=== PATIENT | female | born 1940 | race Caucasian/White ===

== ENCOUNTER 2020-10-15 15:28 | Observation (INO) | payer OTHER ==
[2020-10-15 18:46] LABS: BASO % 0.7 % (0-2.0); EOS % 1.5 % (0-4.5); HEMATOCRIT 38.1 % (32.4-45.2); HEMOGLOBIN 12.6 GM/dL (10.7-15.3); LYMPH % 27.8 % (8-40); MCH 29.4 pg (25.7-33.7); MCHC 33.2 g/dl (32.0-36.0); MEAN CELL VOLUME 88.5 fl (80-96); MEAN PLT VOLUME 9.1 fl (7.5-11.1); MONO % 9.1 % (3.8-10.2); NEUT % 60.9 % (42.8-82.8); PLATELET COUNT 237 10^3/uL (134-434); RBC 4.31 M/mm3 (3.60-5.2); RDW 14.2 % (11.6-15.6); WHITE BLOOD COUNT 10.3 K/mm3 (4.0-10.0)
[2020-10-15 18:52] LABS: INR 1.02 (0.83-1.09); PROTHROMBIN TIME (PATIENT) 12.5 SEC (9.7-13.0)
[2020-10-15 18:55] LABS: ACTIVATED PTT 29.6 SECONDS (25.2-36.5)
[2020-10-15] MEDS ORDERED: ACETAMINOPHEN 1000 MG/100 ML VIAL (NON FORMULARY) IVPB ONE (19:02)
[2020-10-15 19:14] LABS: CHLORIDE 104 mmol/L (98-107); SODIUM 138 mmol/L (136-145)
[2020-10-15 19:16] LABS: ALBUMIN 3.6 g/dl (3.4-5.0); ANION GAP 7 MMOL/L (8-16); BLOOD UREA NITROGEN 28.7 mg/dL (7-18); CALCIUM 9.2 mg/dL (8.5-10.1); CO2 27 mmol/L (21-32)
[2020-10-15 19:17] LABS: GLUCOSE,RANDOM 86 mg/dL (74-106); MAGNESIUM 2.3 mg/dL (1.8-2.4)
[2020-10-15 19:19] LABS: SGOT/AST 36 U/L (15-37); SGPT/ALT 23 U/L (13-61)
[2020-10-15 19:20] LABS: CREATININE 1.5 mg/dL (0.55-1.3)
[2020-10-15 19:21] LABS: BILIRUBIN,TOTAL 0.4 mg/dL (0.2-1)
[2020-10-15 19:22] LABS: ALK PHOS 92 U/L (45-117)
[2020-10-15] MEDS ORDERED: ACETAMINOPHEN INJECTION 100 ML IVPB ONE (19:40)
[2020-10-15] MEDS ORDERED: ACETAMINOPHEN 325 MG TABLET (FP) PO PRN (20:26)
[2020-10-15] MEDS ORDERED: ALBUTEROL SO4 2.5/IPRATROPIUM 0.5 INH SOL 3 ML VIAL.NEB. NEB PRN (20:30)
[2020-10-15] MEDS ORDERED: ATORVASTATIN CA 20 MG TABLET (FP) ONE (21:42)
[2020-10-15] MEDS ORDERED: PANTOPRAZOLE 40 MG TABLET ONE (21:42)
[2020-10-15] MEDS ORDERED: QUEtiapine FUMARATE 25 MG TABLET ONE (21:43)
[2020-10-16] MEDS: MELATONIN 1 MG TABLET PO SCH ×2 (00:07→22:47)
[2020-10-16] MEDS: DIVALPROEX NA *ER* EXTEND REL 500 MG TABLET.SA (FP) PO SCH ×2 (00:08→22:47)
[2020-10-16] MEDS: MINERAL OIL/PET HY-PHL TOPICAL OINTMENT 454 GM JAR TP SCH ×3 (00:08→22:54)
[2020-10-16] MEDS: PANTOPRAZOLE 40 MG TABLET PO SCH ×2 (00:09→10:05)
[2020-10-16] MEDS: ATORVASTATIN CA 20 MG TABLET (FP) PO SCH ×2 (00:09→22:47)
[2020-10-16] MEDS: LITHIUM CARBONATE 150 MG CAPSULE PO SCH ×2 (00:09→22:51)
[2020-10-16] MEDS: QUEtiapine FUMARATE 25 MG TABLET PO SCH ×2 (00:09→22:47)
[2020-10-16] MEDS: D5-1/2NS+10 MEQ KCL - 10 MEQ/1,000 ML INFUS.BAG IV SCH ×3 (00:38→23:46)
[2020-10-16 00:58] VITALS: BMI 31.0
[2020-10-16] MEDS: LEVOTHYROXINE NA 50 MCG TABLET (FP) PO SCH (06:19)
[2020-10-16] MEDS: ESCITALOPRAM OXALATE 20 MG TABLET PO SCH (10:05)
[2020-10-16] MEDS: POLYETHYLENE GLYCOL (HEALTHYLAX) 3350 17 GM PACKET PO SCH (10:05)
[2020-10-16] MEDS: MEMANTINE HCL 5 MG TABLET (UD) PO SCH (10:05)
[2020-10-16] MEDS: ASPIRIN COATED 81 MG TABLET.EC PO SCH (10:05)
[2020-10-16] MEDS: metoPROLOL SUCCINATE 25 MG TAB.SR.24H (FP) PO SCH (10:06)
[2020-10-16] MEDS: DONEPEZIL HCL 5 MG TABLET (FP) PO SCH (10:11)
[2020-10-16 11:47] LABS: BASO % 0.7 % (0-2.0); EOS % 3.7 % (0-4.5); HEMOGLOBIN 11.9 GM/dL (10.7-15.3); LYMPH % 34.2 % (8-40); MCH 28.9 pg (25.7-33.7); MCHC 32.3 g/dl (32.0-36.0); MEAN CELL VOLUME 89.4 fl (80-96); MEAN PLT VOLUME 9.1 fl (7.5-11.1); NEUT % 50.4 % (42.8-82.8); PLATELET COUNT 218 10^3/uL (134-434); RBC 4.13 M/mm3 (3.60-5.2); RDW 14.2 % (11.6-15.6); WHITE BLOOD COUNT 7.2 K/mm3 (4.0-10.0)
[2020-10-16 12:13] LABS: CALCIUM 8.9 mg/dL (8.5-10.1)
[2020-10-16 12:14] LABS: BLOOD UREA NITROGEN 21.6 mg/dL (7-18)
[2020-10-16 12:17] LABS: CREATININE 1.4 mg/dL (0.55-1.3)
[2020-10-16] MEDS ORDERED: PT OWN MED DRAWER 7, Y5N ONE (22:37)
[2020-10-17] MEDS: LEVOTHYROXINE NA 50 MCG TABLET (FP) PO SCH (06:23)
[2020-10-17 07:41] LABS: BASO % 0.8 % (0-2.0); EOS % 4.2 % (0-4.5); HEMATOCRIT 35.2 % (32.4-45.2); HEMOGLOBIN 11.9 GM/dL (10.7-15.3); LYMPH % 42.7 % (8-40); MCH 29.7 pg (25.7-33.7); MCHC 33.7 g/dl (32.0-36.0); MEAN CELL VOLUME 88.1 fl (80-96); MEAN PLT VOLUME 8.4 fl (7.5-11.1); MONO % 7.8 % (3.8-10.2); NEUT % 44.5 % (42.8-82.8); PLATELET COUNT 215 10^3/uL (134-434); RDW 14.1 % (11.6-15.6); WHITE BLOOD COUNT 7.4 K/mm3 (4.0-10.0)
[2020-10-17] MEDS: ESCITALOPRAM OXALATE 20 MG TABLET PO SCH (09:42)
[2020-10-17] MEDS: MINERAL OIL/PET HY-PHL TOPICAL OINTMENT 454 GM JAR TP SCH ×2 (09:42→21:11)
[2020-10-17] MEDS: PANTOPRAZOLE 40 MG TABLET PO SCH (09:42)
[2020-10-17] MEDS: POLYETHYLENE GLYCOL (HEALTHYLAX) 3350 17 GM PACKET PO SCH (09:42)
[2020-10-17] MEDS: ASPIRIN COATED 81 MG TABLET.EC PO SCH (09:42)
[2020-10-17] MEDS: metoPROLOL SUCCINATE 25 MG TAB.SR.24H (FP) PO SCH (09:42)
[2020-10-17] MEDS: MEMANTINE HCL 5 MG TABLET (UD) PO SCH (09:42)
[2020-10-17] MEDS: DONEPEZIL HCL 5 MG TABLET (FP) PO SCH (09:43)
[2020-10-17 10:41] LABS: BLOOD UREA NITROGEN 19.4 mg/dL (7-18); CALCIUM 8.5 mg/dL (8.5-10.1); CREATININE 1.5 mg/dL (0.55-1.3)
[2020-10-17] MEDS: CYANOCOBALAMIN 1,000 MCG TABLET (FP) PO SCH (12:51)
[2020-10-17 20:43] LABS: URINE APPEARANCE CLEAR; URINE BILIRUBIN NEGATIVE (NEGATIVE); URINE COLOR YELLOW; URINE GLUCOSE (UA) NEGATIVE (NEGATIVE)
[2020-10-17 20:44] LABS: PH,URINE 6.5 (5.0-8.0); URINE KETONE NEGATIVE (NEGATIVE); URINE NITRITE NEGATIVE (NEGATIVE); URINE PROTEIN NEGATIVE (NEGATIVE)
[2020-10-17 20:45] LABS: URINE LEUK ESTERASE MODERATE (NEGATIVE)
[2020-10-17] MEDS ORDERED: PT OWN MED DRAWER 7, Y5N ONE (20:57)
[2020-10-17] MEDS: QUEtiapine FUMARATE 25 MG TABLET PO SCH (21:12)
[2020-10-17] MEDS: DIVALPROEX NA *ER* EXTEND REL 500 MG TABLET.SA (FP) PO SCH (21:13)
[2020-10-17] MEDS: LITHIUM CARBONATE 150 MG CAPSULE PO SCH (21:13)
[2020-10-17] MEDS: ATORVASTATIN CA 20 MG TABLET (FP) PO SCH (21:14)
[2020-10-17] MEDS: MELATONIN 1 MG TABLET PO SCH (21:23)
[2020-10-17 21:31] LABS: URINE RBC 0-4 /uL (0-23.9)
[2020-10-17 21:32] LABS: URINE BACTERIA MODERATE /uL (0-1359)
[2020-10-18] MEDS: D5-1/2NS+10 MEQ KCL - 10 MEQ/1,000 ML INFUS.BAG IV SCH (05:40)
[2020-10-18] MEDS: LEVOTHYROXINE NA 50 MCG TABLET (FP) PO SCH (06:02)
[2020-10-18 08:11] LABS: BASO % 0.7 % (0-2.0); EOS % 3.6 % (0-4.5); HEMATOCRIT 38.8 % (32.4-45.2); HEMOGLOBIN 12.8 GM/dL (10.7-15.3); LYMPH % 35.4 % (8-40); MCH 29.2 pg (25.7-33.7); MCHC 32.9 g/dl (32.0-36.0); MEAN CELL VOLUME 88.8 fl (80-96); MEAN PLT VOLUME 8.7 fl (7.5-11.1); MONO % 8.4 % (3.8-10.2); NEUT % 51.9 % (42.8-82.8); PLATELET COUNT 241 10^3/uL (134-434); RBC 4.37 M/mm3 (3.60-5.2); RDW 13.8 % (11.6-15.6); WHITE BLOOD COUNT 9.1 K/mm3 (4.0-10.0)
[2020-10-18 08:26] LABS: CALCIUM 8.8 mg/dL (8.5-10.1)
[2020-10-18 08:27] LABS: BLOOD UREA NITROGEN 21.8 mg/dL (7-18)
[2020-10-18 08:30] LABS: CREATININE 1.6 mg/dL (0.55-1.3)
[2020-10-18] MEDS: ASPIRIN COATED 81 MG TABLET.EC PO SCH (10:12)
[2020-10-18] MEDS: metoPROLOL SUCCINATE 25 MG TAB.SR.24H (FP) PO SCH (10:12)
[2020-10-18] MEDS: CYANOCOBALAMIN 1,000 MCG TABLET (FP) PO SCH (10:13)
[2020-10-18] MEDS: PANTOPRAZOLE 40 MG TABLET PO SCH (10:13)
[2020-10-18] MEDS: DONEPEZIL HCL 5 MG TABLET (FP) PO SCH (10:13)
[2020-10-18] MEDS: MEMANTINE HCL 5 MG TABLET (UD) PO SCH (10:13)
[2020-10-18] MEDS: POLYETHYLENE GLYCOL (HEALTHYLAX) 3350 17 GM PACKET PO SCH (10:13)
[2020-10-18] MEDS: ESCITALOPRAM OXALATE 20 MG TABLET PO SCH (10:13)
[2020-10-18] MEDS: MINERAL OIL/PET HY-PHL TOPICAL OINTMENT 454 GM JAR TP SCH (10:14)
[2020-10-18 10:16] VITALS: BP 129/83; PULSE 93; TEMP 98.2
== END 2020-10-18 15:32 | disposition home or self-care (01) ==
LOC: JER 15:28 → JERBED 19:26 → J4W 23:37
PROVIDERS: ADMIT Internal Medicine; ATTEND Internal Medicine
PROC: 3E033NZ Introduction of Analgesics, Hypnotics, Sedatives into Peripheral Vein, Percutaneous Approach (ICD-10-PCS; principal; 2020-10-15)
PROC: 3E033GC Introduction of Other Therapeutic Substance into Peripheral Vein, Percutaneous Approach (ICD-10-PCS; 2020-10-15)
DX: F07.81 Postconcussional syndrome (principal); R55 Syncope and collapse; S62.124A Nondisplaced fracture of lunate [semilunar], right wrist, initial encounter for closed fracture; I10 Essential (primary) hypertension; I48.91 Unspecified atrial fibrillation; F31.9 Bipolar disorder, unspecified; Z95.0 Presence of cardiac pacemaker; G31.84 Mild cognitive impairment of uncertain or unknown etiology; R26.89 Other abnormalities of gait and mobility; E03.9 Hypothyroidism, unspecified; J45.909 Unspecified asthma, uncomplicated; W18.39XA Other fall on same level, initial encounter; Y93.89 Activity, other specified; Y92.099 Unspecified place in other non-institutional residence as the place of occurrence of the external cause; E66.9 Obesity, unspecified; Z68.31 Body mass index [BMI] 31.0-31.9, adult
CPT/HCPCS: 36415; 70450-TC; 71045-TC-FY; 72125-TC; 73110-TC-RT-FY; 73130-TC-RT-FY; 80048; 80053; 81003; 82550; 82553; 82607; 83735; 84443; 84484; 85025; 85610; 85730; 86780; 87086; 87186; 93005; 93010; 93306-TC; 93880-TC; 96374; 96375; 97116-GP; 97162-GP; 99285-25; C9803; G0378; J0131; U0003; U0005

== ENCOUNTER 2020-11-18 18:20 | Emergency (ER) | payer OTHER ==
[2020-11-18 19:08] VITALS: TEMP 98.4; BMI 30.2
[2020-11-18] MEDS ORDERED: ACETAMINOPHEN 325 MG TABLET (FP) PO ONE (19:50)
[2020-11-18] MEDS ORDERED: ACETAMINOPHEN 325 MG TABLET (FP) ONE (19:54)
[2020-11-18 23:03] VITALS: BP 135/72; PULSE 74
== END 2020-11-19 02:30 | disposition home or self-care (01) ==
LOC: JER 18:20
DX: S09.90XA Unspecified injury of head, initial encounter (principal); W05.0XXA Fall from non-moving wheelchair, initial encounter
CPT/HCPCS: 70450-TC; 72125-TC; 99284-25

== ENCOUNTER 2021-10-13 09:41 | Inpatient (IN) | payer OTHER, BC ==
[2021-10-13 12:16] LABS: BASO % 0.3 % (0-2.0); EOS % 0.2 % (0-4.5); HEMATOCRIT 35.2 % (32.4-45.2); HEMOGLOBIN 11.4 GM/dL (10.7-15.3); MCHC 32.5 g/dl (32.0-36.0); MEAN CELL VOLUME 86.2 fl (80-96); MEAN PLT VOLUME 9.1 fl (7.5-11.1); MONO % 6.3 % (3.8-10.2); NEUT % 79.2 % (42.8-82.8); PLATELET COUNT 291 10^3/uL (134-434); RBC 4.08 M/mm3 (3.60-5.2); RDW 14.9 % (11.6-15.6); WHITE BLOOD COUNT 18.6 K/mm3 (4.0-10.0)
[2021-10-13 12:41] LABS: ALBUMIN 3.1 g/dl (3.4-5.0); CALCIUM 9.5 mg/dL (8.5-10.1)
[2021-10-13 12:42] LABS: BLOOD UREA NITROGEN 23.2 mg/dL (7-18)
[2021-10-13 12:44] LABS: CREATININE 1.3 mg/dL (0.55-1.3)
[2021-10-13 12:45] LABS: BILIRUBIN,TOTAL 0.4 mg/dL (0.2-1)
[2021-10-13 13:00] LABS: ERYTHROCYTE SEDIMENTATION RATE 65 mm/hr (0-30)
[2021-10-13] MEDS: PANTOPRAZOLE 40 MG TABLET PO SCH (18:40)
[2021-10-13] MEDS ORDERED: ATORVASTATIN CA 20 MG TABLET (FP) ONE (21:45)
[2021-10-13] MEDS ORDERED: DIVALPROEX SODIUM 500 MG TABLET E.C. ONE (21:45)
[2021-10-13] MEDS: DIVALPROEX NA *ER* EXTEND REL 500 MG TABLET.SA (FP) PO SCH (21:48)
[2021-10-13] MEDS: ATORVASTATIN CA 20 MG TABLET (FP) PO SCH (21:48)
[2021-10-13] MEDS: LITHIUM CARBONATE 150 MG CAPSULE PO SCH (22:44)
[2021-10-14 03:32] VITALS: BMI 29.8
[2021-10-14] MEDS: LEVOTHYROXINE NA 50 MCG TABLET (FP) PO SCH (06:46)
[2021-10-14] MEDS ORDERED: hydrALAZINE HCL 10 MG TABLET PO ONE (08:23)
[2021-10-14] MEDS ORDERED: ESCITALOPRAM OXALATE 10 MG TABLET ONE (10:00)
[2021-10-14] MEDS ORDERED: metoPROLOL SUCCINATE 25 MG TAB.SR.24H (FP) PO SCH (10:00)
[2021-10-14] MEDS: ASPIRIN COATED 81 MG TABLET.EC PO SCH (10:04)
[2021-10-14] MEDS: MEMANTINE HCL 5 MG TABLET (UD) PO SCH (10:05)
[2021-10-14] MEDS: PANTOPRAZOLE 40 MG TABLET PO SCH (10:05)
[2021-10-14] MEDS: DONEPEZIL HCL 5 MG TABLET (FP) PO SCH (10:05)
[2021-10-14] MEDS: ESCITALOPRAM OXALATE 20 MG TABLET PO SCH (10:05)
[2021-10-14] MEDS: POLYETHYLENE GLYCOL (HEALTHYLAX) 3350 17 GM PACKET PO SCH (10:06)
[2021-10-14 11:05] LABS: BASO % 0.5 % (0-2.0); EOS % 0.2 % (0-4.5); HEMATOCRIT 37.2 % (32.4-45.2); LYMPH % 12.2 % (8-40); MCH 27.9 pg (25.7-33.7); MCHC 32.2 g/dl (32.0-36.0); MEAN CELL VOLUME 86.5 fl (80-96); MEAN PLT VOLUME 8.6 fl (7.5-11.1); MONO % 4.4 % (3.8-10.2); NEUT % 82.7 % (42.8-82.8); PLATELET COUNT 341 10^3/uL (134-434); RBC 4.31 M/mm3 (3.60-5.2); RDW 14.4 % (11.6-15.6); WHITE BLOOD COUNT 17.3 K/mm3 (4.0-10.0)
[2021-10-14] MEDS ORDERED: ONDANSETRON 4 MG/2 ML VIAL IVPUSH PRN (11:10)
[2021-10-14] MEDS: HEPARIN NA (PORCINE) 5,000 UNITS/ML 1ML VIAL SQ SCH ×2 (13:24→21:36)
[2021-10-14] MEDS: PIPERACILLIN/TAZOB 3.375 GM 3.375 GM in DEXTROSE 5%-WATER - 50 ML IVPB SCH ×2 (14:00→17:07)
[2021-10-14] MEDS ORDERED: hydrALAZINE HCL 10 MG TABLET PO SCH ×2 (14:00)
[2021-10-14] MEDS: VANCOMYCIN 1 GRAM (PRE-DOCKED) 1,000 MG/250 ML BAG IVPB SCH (15:00)
[2021-10-14] MEDS ORDERED: PIPERACILLIN/TAZOBACTAM 3.375 GM VIAL IVPB ONE ×2 (15:36→16:39)
[2021-10-14] MEDS ORDERED: DEXTROSE 5%-WATER - 50 ML IVPB ONE (15:37)
[2021-10-14] MEDS: ACETAMINOPHEN 325 MG TABLET (FP) PO PRN (17:47)
[2021-10-14] MEDS: ATORVASTATIN CA 20 MG TABLET (FP) PO SCH (21:35)
[2021-10-14] MEDS: LITHIUM CARBONATE 150 MG CAPSULE PO SCH (21:35)
[2021-10-14] MEDS: DIVALPROEX NA *ER* EXTEND REL 500 MG TABLET.SA (FP) PO SCH (21:36)
[2021-10-15] MEDS ORDERED: DEXTROSE 5%-WATER - 50 ML IVPB ONE ×3 (01:19→17:16)
[2021-10-15] MEDS ORDERED: PIPERACILLIN/TAZOBACTAM 3.375 GM VIAL IVPB ONE ×3 (01:19→17:16)
[2021-10-15] MEDS: PIPERACILLIN/TAZOB 3.375 GM 3.375 GM in DEXTROSE 5%-WATER - 50 ML IVPB SCH ×3 (01:24→17:29)
[2021-10-15] MEDS: VANCOMYCIN 1 GRAM (PRE-DOCKED) 1,000 MG/250 ML BAG IVPB SCH ×2 (01:47→14:21)
[2021-10-15] MEDS: LEVOTHYROXINE NA 50 MCG TABLET (FP) PO SCH (06:05)
[2021-10-15] MEDS: HEPARIN NA (PORCINE) 5,000 UNITS/ML 1ML VIAL SQ SCH ×3 (06:05→21:15)
[2021-10-15] MEDS ORDERED: ESCITALOPRAM OXALATE 10 MG TABLET ONE (09:46)
[2021-10-15] MEDS: ASPIRIN COATED 81 MG TABLET.EC PO SCH (10:00)
[2021-10-15] MEDS: DONEPEZIL HCL 5 MG TABLET (FP) PO SCH (10:00)
[2021-10-15] MEDS: ESCITALOPRAM OXALATE 20 MG TABLET PO SCH (10:00)
[2021-10-15] MEDS: PANTOPRAZOLE 40 MG TABLET PO SCH (10:00)
[2021-10-15] MEDS: MEMANTINE HCL 5 MG TABLET (UD) PO SCH (10:00)
[2021-10-15] MEDS: POLYETHYLENE GLYCOL (HEALTHYLAX) 3350 17 GM PACKET PO SCH (10:00)
[2021-10-15 10:50] LABS: BASO % 0.6 % (0-2.0); HEMATOCRIT 36.3 % (32.4-45.2); HEMOGLOBIN 12.1 GM/dL (10.7-15.3); LYMPH % 18.8 % (8-40); MCH 28.4 pg (25.7-33.7); MCHC 33.3 g/dl (32.0-36.0); MEAN CELL VOLUME 85.2 fl (80-96); MEAN PLT VOLUME 8.4 fl (7.5-11.1); MONO % 5.6 % (3.8-10.2); PLATELET COUNT 361 10^3/uL (134-434); RBC 4.26 M/mm3 (3.60-5.2); RDW 14.7 % (11.6-15.6)
[2021-10-15 11:38] LABS: ERYTHROCYTE SEDIMENTATION RATE 79 mm/hr (0-30)
[2021-10-15] MEDS: DIVALPROEX NA *ER* EXTEND REL 500 MG TABLET.SA (FP) PO SCH (21:14)
[2021-10-15] MEDS: ATORVASTATIN CA 20 MG TABLET (FP) PO SCH (21:14)
[2021-10-15] MEDS: LITHIUM CARBONATE 150 MG CAPSULE PO SCH (21:14)
[2021-10-16] MEDS ORDERED: DEXTROSE 5%-WATER - 50 ML IVPB ONE ×3 (01:16→17:59)
[2021-10-16] MEDS ORDERED: PIPERACILLIN/TAZOBACTAM 3.375 GM VIAL IVPB ONE ×3 (01:16→17:59)
[2021-10-16] MEDS: PIPERACILLIN/TAZOB 3.375 GM 3.375 GM in DEXTROSE 5%-WATER - 50 ML IVPB SCH ×3 (01:23→18:00)
[2021-10-16] MEDS: VANCOMYCIN 1 GRAM (PRE-DOCKED) 1,000 MG/250 ML BAG IVPB SCH ×2 (02:48→16:56)
[2021-10-16] MEDS: HEPARIN NA (PORCINE) 5,000 UNITS/ML 1ML VIAL SQ SCH ×3 (06:02→22:37)
[2021-10-16] MEDS: LEVOTHYROXINE NA 50 MCG TABLET (FP) PO SCH (06:03)
[2021-10-16] MEDS ORDERED: ESCITALOPRAM OXALATE 10 MG TABLET ONE (09:53)
[2021-10-16] MEDS: metoPROLOL SUCCINATE 25 MG TAB.SR.24H (FP) PO SCH (10:03)
[2021-10-16] MEDS: PANTOPRAZOLE 40 MG TABLET PO SCH (10:04)
[2021-10-16] MEDS: DONEPEZIL HCL 5 MG TABLET (FP) PO SCH (10:04)
[2021-10-16] MEDS: MEMANTINE HCL 5 MG TABLET (UD) PO SCH (10:04)
[2021-10-16] MEDS: ASPIRIN COATED 81 MG TABLET.EC PO SCH (10:04)
[2021-10-16] MEDS: MULTIVIT-MINERALS ORAL LIQUID PO SCH (10:04)
[2021-10-16] MEDS: POLYETHYLENE GLYCOL (HEALTHYLAX) 3350 17 GM PACKET PO SCH (10:07)
[2021-10-16] MEDS: ESCITALOPRAM OXALATE 20 MG TABLET PO SCH (10:11)
[2021-10-16 11:06] LABS: BASO % 0.6 % (0-2.0); EOS % 2.2 % (0-4.5); HEMATOCRIT 36.7 % (32.4-45.2); HEMOGLOBIN 12.3 GM/dL (10.7-15.3); LYMPH % 23.2 % (8-40); MCH 28.3 pg (25.7-33.7); MCHC 33.5 g/dl (32.0-36.0); MEAN CELL VOLUME 84.6 fl (80-96); MEAN PLT VOLUME 7.4 fl (7.5-11.1); MONO % 9.2 % (3.8-10.2); NEUT % 64.8 % (42.8-82.8); PLATELET COUNT 382 10^3/uL (134-434); RBC 4.34 M/mm3 (3.60-5.2); RDW 14.6 % (11.6-15.6); WHITE BLOOD COUNT 10.6 K/mm3 (4.0-10.0)
[2021-10-16 12:03] LABS: ERYTHROCYTE SEDIMENTATION RATE 87 mm/hr (0-30)
[2021-10-16] MEDS: ATORVASTATIN CA 20 MG TABLET (FP) PO SCH (22:37)
[2021-10-16] MEDS: DIVALPROEX NA *ER* EXTEND REL 500 MG TABLET.SA (FP) PO SCH (22:37)
[2021-10-16] MEDS: LITHIUM CARBONATE 150 MG CAPSULE PO SCH (22:37)
[2021-10-17] MEDS ORDERED: DEXTROSE 5%-WATER - 50 ML IVPB ONE ×3 (01:03→18:23)
[2021-10-17] MEDS ORDERED: PIPERACILLIN/TAZOBACTAM 3.375 GM VIAL IVPB ONE ×3 (01:03→18:23)
[2021-10-17] MEDS: PIPERACILLIN/TAZOB 3.375 GM 3.375 GM in DEXTROSE 5%-WATER - 50 ML IVPB SCH ×3 (01:30→18:25)
[2021-10-17] MEDS: VANCOMYCIN 1 GRAM (PRE-DOCKED) 1,000 MG/250 ML BAG IVPB SCH ×2 (02:20→13:33)
[2021-10-17] MEDS: HEPARIN NA (PORCINE) 5,000 UNITS/ML 1ML VIAL SQ SCH ×3 (06:24→22:12)
[2021-10-17] MEDS: LEVOTHYROXINE NA 50 MCG TABLET (FP) PO SCH (06:24)
[2021-10-17] MEDS ORDERED: ESCITALOPRAM OXALATE 10 MG TABLET ONE (09:29)
[2021-10-17] MEDS: metoPROLOL SUCCINATE 25 MG TAB.SR.24H (FP) PO SCH (09:37)
[2021-10-17] MEDS: DONEPEZIL HCL 5 MG TABLET (FP) PO SCH (09:37)
[2021-10-17] MEDS: PANTOPRAZOLE 40 MG TABLET PO SCH (09:37)
[2021-10-17] MEDS: ASPIRIN COATED 81 MG TABLET.EC PO SCH (09:37)
[2021-10-17] MEDS: POLYETHYLENE GLYCOL (HEALTHYLAX) 3350 17 GM PACKET PO SCH (09:37)
[2021-10-17] MEDS: ESCITALOPRAM OXALATE 20 MG TABLET PO SCH (09:37)
[2021-10-17] MEDS: MEMANTINE HCL 5 MG TABLET (UD) PO SCH (09:38)
[2021-10-17] MEDS: MULTIVIT-MINERALS ORAL LIQUID PO SCH (10:03)
[2021-10-17 11:58] LABS: BASO % 0.6 % (0-2.0); EOS % 2.6 % (0-4.5); HEMATOCRIT 37.9 % (32.4-45.2); HEMOGLOBIN 12.5 GM/dL (10.7-15.3); LYMPH % 21.9 % (8-40); MCH 28.2 pg (25.7-33.7); MEAN CELL VOLUME 85.4 fl (80-96); MEAN PLT VOLUME 7.6 fl (7.5-11.1); MONO % 7.9 % (3.8-10.2); PLATELET COUNT 391 10^3/uL (134-434); RBC 4.43 M/mm3 (3.60-5.2); RDW 14.5 % (11.6-15.6); WHITE BLOOD COUNT 10.2 K/mm3 (4.0-10.0)
[2021-10-17 12:41] LABS: ERYTHROCYTE SEDIMENTATION RATE 79 mm/hr (0-30)
[2021-10-17] MEDS: ATORVASTATIN CA 20 MG TABLET (FP) PO SCH (22:12)
[2021-10-17] MEDS: LITHIUM CARBONATE 150 MG CAPSULE PO SCH (22:12)
[2021-10-17] MEDS: DIVALPROEX NA *ER* EXTEND REL 500 MG TABLET.SA (FP) PO SCH (22:12)
[2021-10-18] MEDS ORDERED: PIPERACILLIN/TAZOBACTAM 3.375 GM VIAL IVPB ONE ×3 (02:39→17:24)
[2021-10-18] MEDS ORDERED: DEXTROSE 5%-WATER - 50 ML IVPB ONE ×3 (02:39→17:24)
[2021-10-18] MEDS: PIPERACILLIN/TAZOB 3.375 GM 3.375 GM in DEXTROSE 5%-WATER - 50 ML IVPB SCH ×3 (02:47→18:02)
[2021-10-18] MEDS: VANCOMYCIN 1 GRAM (PRE-DOCKED) 1,000 MG/250 ML BAG IVPB SCH (02:47)
[2021-10-18] MEDS: VANCOMYCIN/WATER FOR INJ (PEG) 1,000 MG/200 ML BAG IVPB SCH ×2 (03:30→14:47)
[2021-10-18] MEDS: HEPARIN NA (PORCINE) 5,000 UNITS/ML 1ML VIAL SQ SCH ×3 (06:37→22:51)
[2021-10-18] MEDS: LEVOTHYROXINE NA 50 MCG TABLET (FP) PO SCH (06:37)
[2021-10-18] MEDS ORDERED: ESCITALOPRAM OXALATE 10 MG TABLET ONE (10:53)
[2021-10-18] MEDS: MULTIVIT-MINERALS ORAL LIQUID PO SCH (11:29)
[2021-10-18] MEDS: ASPIRIN COATED 81 MG TABLET.EC PO SCH (11:30)
[2021-10-18] MEDS: MEMANTINE HCL 5 MG TABLET (UD) PO SCH (11:30)
[2021-10-18] MEDS: POLYETHYLENE GLYCOL (HEALTHYLAX) 3350 17 GM PACKET PO SCH (11:30)
[2021-10-18] MEDS: metoPROLOL SUCCINATE 25 MG TAB.SR.24H (FP) PO SCH (11:30)
[2021-10-18] MEDS: ESCITALOPRAM OXALATE 20 MG TABLET PO SCH (11:31)
[2021-10-18] MEDS: DONEPEZIL HCL 5 MG TABLET (FP) PO SCH (11:31)
[2021-10-18] MEDS: PANTOPRAZOLE 40 MG TABLET PO SCH (11:32)
[2021-10-18] MEDS: DIVALPROEX NA *ER* EXTEND REL 500 MG TABLET.SA (FP) PO SCH (22:51)
[2021-10-18] MEDS: LITHIUM CARBONATE 150 MG CAPSULE PO SCH (22:51)
[2021-10-18] MEDS: ATORVASTATIN CA 20 MG TABLET (FP) PO SCH (22:51)
[2021-10-19] MEDS ORDERED: DEXTROSE 5%-WATER - 50 ML IVPB ONE ×3 (01:08→17:29)
[2021-10-19] MEDS ORDERED: PIPERACILLIN/TAZOBACTAM 3.375 GM VIAL IVPB ONE ×3 (01:08→17:29)
[2021-10-19] MEDS: PIPERACILLIN/TAZOB 3.375 GM 3.375 GM in DEXTROSE 5%-WATER - 50 ML IVPB SCH ×3 (01:17→18:04)
[2021-10-19] MEDS: ACETAMINOPHEN 325 MG TABLET (FP) PO PRN (02:39)
[2021-10-19] MEDS: VANCOMYCIN/WATER FOR INJ (PEG) 1,000 MG/200 ML BAG IVPB SCH ×2 (02:40→15:02)
[2021-10-19] MEDS: LEVOTHYROXINE NA 50 MCG TABLET (FP) PO SCH (06:23)
[2021-10-19] MEDS: HEPARIN NA (PORCINE) 5,000 UNITS/ML 1ML VIAL SQ SCH ×3 (06:23→22:41)
[2021-10-19] MEDS ORDERED: ESCITALOPRAM OXALATE 10 MG TABLET ONE (10:17)
[2021-10-19] MEDS: MEMANTINE HCL 5 MG TABLET (UD) PO SCH (10:34)
[2021-10-19] MEDS: DONEPEZIL HCL 5 MG TABLET (FP) PO SCH (10:34)
[2021-10-19] MEDS: metoPROLOL SUCCINATE 25 MG TAB.SR.24H (FP) PO SCH (10:34)
[2021-10-19] MEDS: PANTOPRAZOLE 40 MG TABLET PO SCH (10:34)
[2021-10-19] MEDS: ASPIRIN COATED 81 MG TABLET.EC PO SCH (10:35)
[2021-10-19] MEDS: MULTIVIT-MINERALS ORAL LIQUID PO SCH (10:35)
[2021-10-19] MEDS: POLYETHYLENE GLYCOL (HEALTHYLAX) 3350 17 GM PACKET PO SCH (10:35)
[2021-10-19] MEDS: ESCITALOPRAM OXALATE 20 MG TABLET PO SCH (10:35)
[2021-10-19] MEDS: LITHIUM CARBONATE 150 MG CAPSULE PO SCH (22:41)
[2021-10-19] MEDS: DIVALPROEX NA *ER* EXTEND REL 500 MG TABLET.SA (FP) PO SCH (22:41)
[2021-10-19] MEDS: ATORVASTATIN CA 20 MG TABLET (FP) PO SCH (22:41)
[2021-10-20] MEDS ORDERED: PIPERACILLIN/TAZOBACTAM 3.375 GM VIAL IVPB ONE ×2 (01:36→09:56)
[2021-10-20] MEDS ORDERED: DEXTROSE 5%-WATER - 50 ML IVPB ONE ×2 (01:36→09:56)
[2021-10-20] MEDS: PIPERACILLIN/TAZOB 3.375 GM 3.375 GM in DEXTROSE 5%-WATER - 50 ML IVPB SCH ×2 (01:38→10:00)
[2021-10-20] MEDS: VANCOMYCIN/WATER FOR INJ (PEG) 1,000 MG/200 ML BAG IVPB SCH (02:48)
[2021-10-20] MEDS: HEPARIN NA (PORCINE) 5,000 UNITS/ML 1ML VIAL SQ SCH ×3 (06:22→22:17)
[2021-10-20] MEDS: LEVOTHYROXINE NA 50 MCG TABLET (FP) PO SCH (06:22)
[2021-10-20] MEDS ORDERED: ESCITALOPRAM OXALATE 10 MG TABLET ONE (09:54)
[2021-10-20] MEDS: ASPIRIN COATED 81 MG TABLET.EC PO SCH (10:05)
[2021-10-20] MEDS: DONEPEZIL HCL 5 MG TABLET (FP) PO SCH (10:05)
[2021-10-20] MEDS: metoPROLOL SUCCINATE 25 MG TAB.SR.24H (FP) PO SCH (10:05)
[2021-10-20] MEDS: MEMANTINE HCL 5 MG TABLET (UD) PO SCH (10:05)
[2021-10-20] MEDS: PANTOPRAZOLE 40 MG TABLET PO SCH (10:05)
[2021-10-20] MEDS: POLYETHYLENE GLYCOL (HEALTHYLAX) 3350 17 GM PACKET PO SCH (10:05)
[2021-10-20] MEDS: ESCITALOPRAM OXALATE 20 MG TABLET PO SCH (10:15)
[2021-10-20] MEDS: MULTIVIT-MINERALS ORAL LIQUID PO SCH (10:39)
[2021-10-20 11:12] LABS: HEMOGLOBIN 12.6 GM/dL (10.7-15.3); MCH 27.9 pg (25.7-33.7); MCHC 32.4 g/dl (32.0-36.0); MEAN CELL VOLUME 86.2 fl (80-96); MEAN PLT VOLUME 8.4 fl (7.5-11.1); PLATELET COUNT 447 10^3/uL (134-434); RBC 4.52 M/mm3 (3.60-5.2); RDW 14.5 % (11.6-15.6); WHITE BLOOD COUNT 14.7 K/mm3 (4.0-10.0)
[2021-10-20 11:35] LABS: ANISOCYTOSIS 1+; MACROCYTOSIS 0
[2021-10-20] MEDS ORDERED: AMOX TR/POT CLAV 875MG/125MG TABLETS (FP) PO SCH (17:30)
[2021-10-20] MEDS: AMOX TR/POT CLAV 875MG/125MG TABLETS (FP) PO SCH (17:40)
[2021-10-20] MEDS: LITHIUM CARBONATE 150 MG CAPSULE PO SCH (22:17)
[2021-10-20] MEDS: ATORVASTATIN CA 20 MG TABLET (FP) PO SCH (22:17)
[2021-10-20] MEDS: DIVALPROEX NA *ER* EXTEND REL 500 MG TABLET.SA (FP) PO SCH (22:17)
[2021-10-21] MEDS: HEPARIN NA (PORCINE) 5,000 UNITS/ML 1ML VIAL SQ SCH (06:00)
[2021-10-21] MEDS: LEVOTHYROXINE NA 50 MCG TABLET (FP) PO SCH (06:00)
[2021-10-21] MEDS: AMOX TR/POT CLAV 875MG/125MG TABLETS (FP) PO SCH (08:56)
[2021-10-21 09:01] VITALS: TEMP 97.6
[2021-10-21] MEDS ORDERED: ESCITALOPRAM OXALATE 10 MG TABLET ONE (09:02)
[2021-10-21] MEDS: MEMANTINE HCL 5 MG TABLET (UD) PO SCH (09:04)
[2021-10-21] MEDS: ASPIRIN COATED 81 MG TABLET.EC PO SCH (09:04)
[2021-10-21] MEDS: metoPROLOL SUCCINATE 25 MG TAB.SR.24H (FP) PO SCH (09:04)
[2021-10-21] MEDS: DONEPEZIL HCL 5 MG TABLET (FP) PO SCH (09:04)
[2021-10-21] MEDS: PANTOPRAZOLE 40 MG TABLET PO SCH (09:04)
[2021-10-21] MEDS: MULTIVIT-MINERALS ORAL LIQUID PO SCH (09:05)
[2021-10-21] MEDS: ESCITALOPRAM OXALATE 20 MG TABLET PO SCH (09:05)
[2021-10-21] MEDS: POLYETHYLENE GLYCOL (HEALTHYLAX) 3350 17 GM PACKET PO SCH (09:05)
[2021-10-21] MEDS: ACETAMINOPHEN 325 MG TABLET (FP) PO PRN (09:05)
[2021-10-21 13:26] VITALS: BP 130/85; PULSE 83
== END 2021-10-21 14:04 | disposition home or self-care (01) | DRG 156 ==
LOC: JER 09:41 → JERBED 17:30 → J6S 10-14 00:52
PROVIDERS: ADMIT Internal Medicine; ATTEND Internal Medicine
DX: K11.20 Sialoadenitis, unspecified (principal); H66.90 Otitis media, unspecified, unspecified ear; I10 Essential (primary) hypertension; F03.90 Unspecified dementia, unspecified severity, without behavioral disturbance, psychotic disturbance, mood disturbance, and anxiety; I48.0 Paroxysmal atrial fibrillation; F31.9 Bipolar disorder, unspecified; R41.89 Other symptoms and signs involving cognitive functions and awareness; E78.5 Hyperlipidemia, unspecified; E03.9 Hypothyroidism, unspecified; D72.829 Elevated white blood cell count, unspecified; F41.8 Other specified anxiety disorders; K59.00 Constipation, unspecified
CPT/HCPCS: 36415; 70487-TC; 70491-TC; 80053; 85025; 85651; 86140; 87040; 93005; 93010; 97162-GP; 99285-25; C9803-CS; G0480; J1644; Q9967; U0003; U0005

== ENCOUNTER 2021-10-21 15:48 | Observation (INO) | payer OTHER, BC ==
[2021-10-21 17:01] VITALS: BMI 29.2
[2021-10-21 18:00] LABS: HEMATOCRIT 40.7 % (32.4-45.2); HEMOGLOBIN 13.3 GM/dL (10.7-15.3); MCH 28.1 pg (25.7-33.7); MCHC 32.5 g/dl (32.0-36.0); MEAN CELL VOLUME 86.3 fl (80-96); PLATELET COUNT 445 10^3/uL (134-434); RBC 4.72 M/mm3 (3.60-5.2); RDW 15.3 % (11.6-15.6)
[2021-10-21 18:24] LABS: BLOOD UREA NITROGEN 28.8 mg/dL (7-18); CALCIUM 8.8 mg/dL (8.5-10.1)
[2021-10-21 18:25] LABS: ALBUMIN 2.7 g/dl (3.4-5.0)
[2021-10-21 18:28] LABS: CREATININE 1.3 mg/dL (0.55-1.3)
[2021-10-21 18:29] LABS: BILIRUBIN,TOTAL 0.2 mg/dL (0.2-1); TOT PROT 6.5 g/dl (6.4-8.2)
[2021-10-21 19:16] LABS: ANISOCYTOSIS 1+; MACROCYTOSIS 1+; OVALOCYTE 1+; PLATELET ESTIMATE INCREASED
[2021-10-21] MEDS ORDERED: ACETAMINOPHEN 325 MG TABLET (FP) PO PRN (19:41)
[2021-10-21] MEDS ORDERED: LACTATED RINGERS SOLUTION 1,000 ML/1,000 ML INFUS.BAG IV SCH (19:45)
[2021-10-21] MEDS ORDERED: MELATONIN 1 MG TABLET PO PRN (19:52)
[2021-10-21] MEDS ORDERED: DOCUSATE SODIUM 100 MG CAPSULE (FP) PO SCH (22:00)
[2021-10-21] MEDS ORDERED: DIVALPROEX NA *ER* EXTEND REL 500 MG TABLET.SA (FP) PO SCH (22:00)
[2021-10-21] MEDS ORDERED: QUEtiapine FUMARATE 25 MG TABLET PO SCH (22:00)
[2021-10-21] MEDS ORDERED: LITHIUM CARBONATE 150 MG CAPSULE PO SCH (22:00)
[2021-10-21] MEDS ORDERED: ATORVASTATIN CA 20 MG TABLET (FP) PO SCH (22:00)
[2021-10-21] MEDS: HEPARIN NA (PORCINE) 5,000 UNITS/ML 1ML VIAL SQ SCH (23:01)
[2021-10-21] MEDS: AMOX TR/POT CLAV 875MG/125MG TABLETS (FP) PO SCH (23:01)
[2021-10-22] MEDS: HEPARIN NA (PORCINE) 5,000 UNITS/ML 1ML VIAL SQ SCH ×2 (06:17→13:26)
[2021-10-22] MEDS ORDERED: LEVOTHYROXINE NA 50 MCG TABLET (FP) PO SCH (07:00)
[2021-10-22] MEDS ORDERED: LACTATED RINGERS SOLUTION 1,000 ML/1,000 ML INFUS.BAG IV SCH (07:02)
[2021-10-22 07:20] LABS: BASO % 0.6 % (0-2.0); EOS % 3.1 % (0-4.5); HEMATOCRIT 38.1 % (32.4-45.2); HEMOGLOBIN 12.3 GM/dL (10.7-15.3); LYMPH % 36.6 % (8-40); MCH 27.8 pg (25.7-33.7); MCHC 32.1 g/dl (32.0-36.0); MEAN CELL VOLUME 86.7 fl (80-96); MEAN PLT VOLUME 8.3 fl (7.5-11.1); MONO % 9.2 % (3.8-10.2); NEUT % 50.5 % (42.8-82.8); PLATELET COUNT 390 10^3/uL (134-434); WHITE BLOOD COUNT 13.6 K/mm3 (4.0-10.0)
[2021-10-22 07:42] LABS: CALCIUM 9.9 mg/dL (8.5-10.1)
[2021-10-22 07:43] LABS: BLOOD UREA NITROGEN 30.1 mg/dL (7-18)
[2021-10-22 07:46] LABS: CREATININE 1.4 mg/dL (0.55-1.3)
[2021-10-22] MEDS: AMOX TR/POT CLAV 875MG/125MG TABLETS (FP) PO SCH (08:35)
[2021-10-22] MEDS ORDERED: MEMANTINE HCL 5 MG TABLET (UD) PO SCH (10:00)
[2021-10-22] MEDS ORDERED: DIVALPROEX NA *ER* EXTEND REL 500 MG TABLET.SA (FP) PO SCH (10:00)
[2021-10-22] MEDS ORDERED: PANTOPRAZOLE 40 MG TABLET PO SCH (10:00)
[2021-10-22] MEDS ORDERED: ESCITALOPRAM OXALATE 20 MG TABLET PO SCH (10:00)
[2021-10-22] MEDS ORDERED: ASPIRIN COATED 81 MG TABLET.EC PO SCH (10:00)
[2021-10-22] MEDS ORDERED: POLYETHYLENE GLYCOL (HEALTHYLAX) 3350 17 GM PACKET PO SCH (10:00)
[2021-10-22] MEDS ORDERED: DONEPEZIL HCL 5 MG TABLET (FP) PO SCH (10:00)
[2021-10-22 15:30] VITALS: BP 117/77; PULSE 91; TEMP 98.2
== END 2021-10-22 17:41 | disposition short-term general hospital (02) ==
LOC: JER 15:48 → JERBED 19:31 → J4W 22:00
PROVIDERS: ADMIT Internal Medicine; ATTEND Internal Medicine
PROC: 3E023GC Introduction of Other Therapeutic Substance into Muscle, Percutaneous Approach (ICD-10-PCS; principal; 2021-10-21)
PROC: 3E0337Z Introduction of Electrolytic and Water Balance Substance into Peripheral Vein, Percutaneous Approach (ICD-10-PCS; 2021-10-21)
DX: I48.0 Paroxysmal atrial fibrillation (principal); F31.9 Bipolar disorder, unspecified; I45.9 Conduction disorder, unspecified; G31.84 Mild cognitive impairment of uncertain or unknown etiology; Z95.0 Presence of cardiac pacemaker; J45.909 Unspecified asthma, uncomplicated; E03.9 Hypothyroidism, unspecified; R26.81 Unsteadiness on feet; E78.00 Pure hypercholesterolemia, unspecified
CPT/HCPCS: 36415; 71045-TC-FY; 80048; 80053; 84443; 84484; 85025; 93005; 93010; 96360; 96372; 99285-25; C9803-CS; G0378; J1644; U0003; U0005

== ENCOUNTER 2022-02-02 11:04 | Emergency (ER) | payer OTHER, BC ==
[2022-02-02 11:25] VITALS: RESP 18; TEMP 98.8; BMI 26.4
[2022-02-02 18:04] VITALS: BP 139/83; PULSE 86
== END 2022-02-02 18:08 ==
LOC: JER 11:04
DX: Z04.3 Encounter for examination and observation following other accident (principal)
CPT/HCPCS: 70450-TC; 72125-TC; 72170-TC-FY; 73502-TC-LT-FY; 99285-25

== ENCOUNTER 2023-08-08 20:38 | Inpatient (IN) | payer OTHER, BC ==
[2023-08-08 22:09] LABS: BASO % 0.9 % (0-2.0); EOS % 0.3 % (0-4.5); HEMATOCRIT 35.2 % (32.4-45.2); HEMOGLOBIN 11.6 GM/dL (10.7-15.3); LYMPH % 15.7 % (8-40); MCH 27.4 pg (25.7-33.7); MEAN CELL VOLUME 82.9 fl (80-96); MEAN PLT VOLUME 8.1 fl (7.5-11.1); MONO % 9.9 % (3.8-10.2); NEUT % 73.2 % (42.8-82.8); PLATELET COUNT 296 10^3/uL (134-434); RBC 4.24 M/mm3 (3.60-5.2); RDW 15.5 % (11.6-15.6); WHITE BLOOD COUNT 10.6 K/mm3 (4.0-10.0)
[2023-08-08 22:24] LABS: POTASSIUM 4.5 mmol/L (3.5-5.1)
[2023-08-08 22:25] LABS: CALCIUM 9.5 mg/dL (8.5-10.1)
[2023-08-08 22:26] LABS: BLOOD UREA NITROGEN 32.6 mg/dL (7-18); MAGNESIUM 2.3 mg/dL (1.8-2.4)
[2023-08-08 22:29] LABS: CREATININE 1.4 mg/dL (0.55-1.3); PHOSPHOROUS 3.7 mg/dL (2.5-4.9)
[2023-08-08 22:31] LABS: BILIRUBIN,TOTAL 0.3 mg/dL (0.2-1); TOT PROT 7.1 g/dl (6.4-8.2)
[2023-08-08] MEDS: SODIUM CHLORIDE 0.9% 500 ML INFUS.BAG IV ONE (22:42)
[2023-08-09 00:41] LABS: EPI CELLS 35 /uL (0-25.1); HYALINE CASTS 0 /uL (0-3.1); URINE APPEARANCE TURBID; URINE BACTERIA >9,000 /uL (0-1359); URINE BILIRUBIN NEGATIVE (NEGATIVE); URINE COLOR YELLOW; URINE GLUCOSE (UA) NEGATIVE (NEGATIVE); URINE KETONE NEGATIVE (NEGATIVE); URINE LEUK ESTERASE 3+ (NEGATIVE); URINE NITRITE POSITIVE (NEGATIVE); URINE PROTEIN 2+ (NEGATIVE); URINE WBC 11396 /uL (0-25.8)
[2023-08-09] MEDS ORDERED: ALBUTEROL SO4 2.5/IPRATROPIUM 0.5 INH SOL 3 ML VIAL.NEB. NEB PRN (01:22)
[2023-08-09] MEDS ORDERED: CEFTRIAXONE 1 GM/50 ML BAG ONE (01:25)
[2023-08-09] MEDS: LACTATED RINGERS SOLUTION 1,000 ML/1,000 ML INFUS.BAG IV SCH ×3 (01:46→10:11)
[2023-08-09] MEDS ORDERED: PANTOPRAZOLE 40 MG TABLET PO ONE ×2 (02:35→10:04)
[2023-08-09] MEDS ORDERED: POLYETHYLENE GLYCOL (HEALTHYLAX) 3350 17 GM PACKET ONE ×2 (02:35→05:26)
[2023-08-09] MEDS ORDERED: HEPARIN NA (PORCINE) 5,000 UNITS/ML 1ML VIAL ONE (02:36)
[2023-08-09] MEDS: POLYETHYLENE GLYCOL (HEALTHYLAX) 3350 17 GM PACKET PO SCH (02:46)
[2023-08-09] MEDS: HEPARIN NA (PORCINE) 5,000 UNITS/ML 1ML VIAL SQ SCH (02:46)
[2023-08-09] MEDS: PANTOPRAZOLE 40 MG TABLET PO SCH (02:46)
[2023-08-09] MEDS: MINERAL OIL ENEMA 133 ML ENEMA RC ONE (03:19)
[2023-08-09 05:25] LABS: BASO % 0.4 % (0-2.0); EOS % 0.8 % (0-4.5); HEMATOCRIT 34.8 % (32.4-45.2); LYMPH % 22.4 % (8-40); MCH 26.8 pg (25.7-33.7); MCHC 31.7 g/dl (32.0-36.0); MEAN CELL VOLUME 84.6 fl (80-96); MEAN PLT VOLUME 7.8 fl (7.5-11.1); MONO % 10.9 % (3.8-10.2); NEUT % 65.5 % (42.8-82.8); PLATELET COUNT 280 10^3/uL (134-434); RBC 4.12 M/mm3 (3.60-5.2); RDW 15.2 % (11.6-15.6); WHITE BLOOD COUNT 10.9 K/mm3 (4.0-10.0)
[2023-08-09 05:49] LABS: POTASSIUM 4.7 mmol/L (3.5-5.1)
[2023-08-09 05:50] LABS: BLOOD UREA NITROGEN 30.6 mg/dL (7-18); CALCIUM 9.1 mg/dL (8.5-10.1)
[2023-08-09 05:54] LABS: CREATININE 1.5 mg/dL (0.55-1.3)
[2023-08-09] MEDS ORDERED: LEVOTHYROXINE NA 75 MCG TABLET (FP) ONE (07:45)
[2023-08-09] MEDS ORDERED: LEVOTHYROXINE NA 50 MCG TABLET (FP) ONE (07:47)
[2023-08-09] MEDS: LEVOTHYROXINE NA 50 MCG TABLET (FP) PO SCH (07:51)
[2023-08-09 08:25] LABS: URINE RBC 780.4 /uL (0-23.9); YEAST NEGATIVE (NEGATIVE)
[2023-08-09] MEDS ORDERED: ASPIRIN 81 MG CHEWABLE TABLETS ONE (10:04)
[2023-08-09] MEDS ORDERED: ARIPiprazole 5 MG TABLET ONE (10:04)
[2023-08-09] MEDS ORDERED: ESCITALOPRAM OXALATE 10 MG TABLET ONE (10:05)
[2023-08-09] MEDS: ASPIRIN COATED 81 MG TABLET.EC PO SCH (10:11)
[2023-08-09] MEDS: DONEPEZIL HCL 5 MG TABLET (FP) PO SCH (10:11)
[2023-08-09] MEDS: ESCITALOPRAM OXALATE 20 MG TABLET PO SCH (10:11)
[2023-08-09] MEDS: MEMANTINE HCL 5 MG TABLET (UD) PO SCH (10:11)
[2023-08-09 15:27] VITALS: BMI 25.1
[2023-08-09] MEDS: CEFTRIAXONE 1 GM in DEXTROSE 5%-WATER - 50 ML IVPB SCH (17:59)
[2023-08-09] MEDS: LITHIUM CARBONATE 150 MG CAPSULE PO SCH (21:42)
[2023-08-09] MEDS: DIVALPROEX NA *ER* EXTEND REL 500 MG TABLET.SA (FP) PO SCH (21:43)
[2023-08-09] MEDS: MELATONIN 1 MG TABLET PO SCH (21:43)
[2023-08-09] MEDS: DOCUSATE SODIUM 100 MG CAPSULE (FP) PO SCH (21:43)
[2023-08-09] MEDS: QUEtiapine FUMARATE 50 MG TABLET PO SCH (21:45)
[2023-08-09] MEDS: ATORVASTATIN CA 20 MG TABLET (FP) PO SCH (21:45)
[2023-08-10 08:20] LABS: EOS % 2.8 % (0-4.5); HEMATOCRIT 29.7 % (32.4-45.2); HEMOGLOBIN 9.6 GM/dL (10.7-15.3); LYMPH % 30.2 % (8-40); MCHC 32.3 g/dl (32.0-36.0); MEAN CELL VOLUME 83.7 fl (80-96); MEAN PLT VOLUME 8.3 fl (7.5-11.1); MONO % 12.1 % (3.8-10.2); NEUT % 53.9 % (42.8-82.8); PLATELET COUNT 247 10^3/uL (134-434); RBC 3.55 M/mm3 (3.60-5.2); RDW 15.2 % (11.6-15.6); WHITE BLOOD COUNT 7.8 K/mm3 (4.0-10.0)
[2023-08-10 08:30] LABS: POTASSIUM 4.2 mmol/L (3.5-5.1)
[2023-08-10 08:47] LABS: CALCIUM 8.9 mg/dL (8.5-10.1)
[2023-08-10 08:48] LABS: BLOOD UREA NITROGEN 24.4 mg/dL (7-18)
[2023-08-10 08:51] LABS: CREATININE 1.1 mg/dL (0.55-1.3)
[2023-08-10] MEDS ORDERED: ESCITALOPRAM OXALATE 10 MG TABLET ONE (09:38)
[2023-08-10] MEDS ORDERED: FERRIC CARBOXYMALTOSE 750 MG/15 ML VIAL IVPB ONE (10:29)
[2023-08-10] MEDS: IRON SUCROSE INJECTION 300 MG in SODIUM CHLORIDE 235 ML IVPB ONE (11:29)
[2023-08-10] MEDS: LACTATED RINGERS SOLUTION 1,000 ML/1,000 ML INFUS.BAG IV SCH ×2 (13:39→18:02)
[2023-08-10 15:52] VITALS: RESP 20
[2023-08-10] MEDS: ALBUTEROL SO4 0.083% IH SOL 2.5 MG/3 ML VIAL.NEB. NEB ONE (17:37)
[2023-08-10] MEDS: ALBUTEROL SO4 2.5/IPRATROPIUM 0.5 INH SOL 3 ML VIAL.NEB. NEB SCH (19:25)
[2023-08-10] MEDS: POLYETHYLENE GLYCOL (HEALTHYLAX) 3350 17 GM PACKET PO SCH (21:29)
[2023-08-11 07:25] LABS: BASO % 0.6 % (0-2.0); EOS % 2.6 % (0-4.5); HEMATOCRIT 28.3 % (32.4-45.2); HEMOGLOBIN 9.4 GM/dL (10.7-15.3); LYMPH % 32.6 % (8-40); MCH 27.2 pg (25.7-33.7); MCHC 33.3 g/dl (32.0-36.0); MEAN CELL VOLUME 81.4 fl (80-96); MEAN PLT VOLUME 8.5 fl (7.5-11.1); MONO % 13.1 % (3.8-10.2); NEUT % 51.1 % (42.8-82.8); PLATELET COUNT 242 10^3/uL (134-434); RBC 3.47 M/mm3 (3.60-5.2); RDW 14.7 % (11.6-15.6); WHITE BLOOD COUNT 6.7 K/mm3 (4.0-10.0)
[2023-08-11 07:39] LABS: POTASSIUM 4.3 mmol/L (3.5-5.1)
[2023-08-11 07:41] LABS: CALCIUM 8.9 mg/dL (8.5-10.1)
[2023-08-11 07:42] LABS: BLOOD UREA NITROGEN 17.4 mg/dL (7-18)
[2023-08-11 07:45] LABS: CREATININE 1.1 mg/dL (0.55-1.3)
[2023-08-11] MEDS ORDERED: ESCITALOPRAM OXALATE 10 MG TABLET ONE (10:01)
[2023-08-11] MEDS: IRON SUCROSE INJECTION 300 MG in SODIUM CHLORIDE 235 ML IVPB ONE (13:07)
[2023-08-12] MEDS ORDERED: ESCITALOPRAM OXALATE 10 MG TABLET ONE (10:15)
[2023-08-12] MEDS: ACETAMINOPHEN 325 MG TABLET (FP) PO PRN (10:31)
[2023-08-12 11:00] VITALS: BP 129/76; PULSE 104; TEMP 98.4
== END 2023-08-12 10:30 | DRG 689 ==
LOC: JER 20:38 → JERBED 08-09 01:16 → OBSVTOIN 08-09 01:24 → J8W 08-09 14:47
PROVIDERS: ADMIT Internal Medicine; ATTEND Internal Medicine
DX: N39.0 Urinary tract infection, site not specified (principal); R53.2 Functional quadriplegia; N17.9 Acute kidney failure, unspecified; B96.20 Unspecified Escherichia coli [E. coli] as the cause of diseases classified elsewhere; B95.4 Other streptococcus as the cause of diseases classified elsewhere; I48.91 Unspecified atrial fibrillation; E78.5 Hyperlipidemia, unspecified; F03.90 Unspecified dementia, unspecified severity, without behavioral disturbance, psychotic disturbance, mood disturbance, and anxiety; E03.9 Hypothyroidism, unspecified; F31.9 Bipolar disorder, unspecified; K56.41 Fecal impaction; F41.8 Other specified anxiety disorders; K52.89 Other specified noninfective gastroenteritis and colitis; D50.9 Iron deficiency anemia, unspecified; K57.30 Diverticulosis of large intestine without perforation or abscess without bleeding; E86.0 Dehydration; R26.81 Unsteadiness on feet; G47.00 Insomnia, unspecified; R41.89 Other symptoms and signs involving cognitive functions and awareness; K11.8 Other diseases of salivary glands; I12.9 Hypertensive chronic kidney disease with stage 1 through stage 4 chronic kidney disease, or unspecified chronic kidney disease; N18.9 Chronic kidney disease, unspecified; Z95.0 Presence of cardiac pacemaker
CPT/HCPCS: 0241U-QW; 36415; 71045-TC-FY; 74176-TC; 80048; 80053; 81003; 82436; 82570; 82728; 82962; 83540; 83550; 83735; 83880; 84100; 84133; 84300; 84484; 85025; 87040; 87086; 87186; 93005; 93010; 94640; 97116-GP; 97161-GP; 99285-25; G0378; J1644; J1756

== ENCOUNTER 2023-08-13 15:38 | Inpatient (IN) | payer OTHER, BC ==
[2023-08-13] MEDS ORDERED: ALBUTEROL SO4 2.5/IPRATROPIUM 0.5 INH SOL 3 ML VIAL.NEB. NEB ONE (16:29)
[2023-08-13] MEDS ORDERED: ACETAMINOPHEN INJECTION 100 ML IVPB ONE (16:29)
[2023-08-13] MEDS: ACETAMINOPHEN 1000 MG/100 ML BAG IVPB ONE (17:00)
[2023-08-13] MEDS: SODIUM CHLORIDE 0.9% 500 ML INFUS.BAG IV ONE ×2 (17:00→17:50)
[2023-08-13] MEDS: ALBUTEROL SO4 2.5/IPRATROPIUM 0.5 INH SOL 3 ML VIAL.NEB. NEB SCH (17:01)
[2023-08-13 17:15] LABS: VENOUS BASE EXCESS -2.9 mmol/L (-2-2); VENOUS O2 SATURATION 55.4 % (70-80); VENOUS PCO2 38.8 mmHg (38-52); VENOUS PH 7.371 (7.310-7.410)
[2023-08-13 17:19] LABS: BASO % 0.7 % (0-2.0); EOS % 2.6 % (0-4.5); HEMATOCRIT 35.5 % (32.4-45.2); HEMOGLOBIN 11.5 GM/dL (10.7-15.3); LYMPH % 12.6 % (8-40); MCH 26.6 pg (25.7-33.7); MCHC 32.3 g/dl (32.0-36.0); MEAN CELL VOLUME 82.3 fl (80-96); MONO % 5.8 % (3.8-10.2); NEUT % 78.3 % (42.8-82.8); PLATELET COUNT 357 10^3/uL (134-434); RBC 4.31 M/mm3 (3.60-5.2); RDW 15.6 % (11.6-15.6); WHITE BLOOD COUNT 11.6 K/mm3 (4.0-10.0)
[2023-08-13 17:21] LABS: INR 1.18 (0.83-1.09); PROTHROMBIN TIME (PATIENT) 13.3 SEC (9.7-13.0)
[2023-08-13 17:23] LABS: ACTIVATED PTT 30.2 SECONDS (25.2-36.5)
[2023-08-13 17:36] LABS: CHLORIDE 108 mmol/L (98-107); POTASSIUM 5.8 mmol/L (3.5-5.1); SODIUM 138 mmol/L (136-145)
[2023-08-13 17:39] LABS: ALBUMIN 2.8 g/dl (3.4-5.0); ANION GAP 5 mmol/L (4-13); BLOOD UREA NITROGEN 23.1 mg/dL (7-18); CALCIUM 9.4 mg/dL (8.5-10.1); CO2 25 mmol/L (21-32)
[2023-08-13 17:40] LABS: GLUCOSE,RANDOM 103 mg/dL (74-106); MAGNESIUM 2.3 mg/dL (1.8-2.4)
[2023-08-13 17:42] LABS: CREATININE 1.5 mg/dL (0.55-1.3); SGOT/AST 93 U/L (15-37); SGPT/ALT 45 U/L (13-61)
[2023-08-13 17:44] LABS: ALK PHOS 81 U/L (45-117); BILIRUBIN,TOTAL 0.4 mg/dL (0.2-1); TOT PROT 7.6 g/dl (6.4-8.2)
[2023-08-13 17:48] LABS: N-TERMINAL BNP 4902.1 pg/ml (5-450)
[2023-08-13 18:15] LABS: EPI CELLS 11 /uL (0-25.1); HYALINE CASTS 1 /uL (0-3.1); PH,URINE 6.5 (5.0-8.0); URINE APPEARANCE CLEAR; URINE BACTERIA 7 /uL (0-1359); URINE BILIRUBIN NEGATIVE (NEGATIVE); URINE COLOR YELLOW; URINE GLUCOSE (UA) NEGATIVE (NEGATIVE); URINE KETONE NEGATIVE (NEGATIVE); URINE LEUK ESTERASE NEGATIVE (NEGATIVE); URINE NITRITE NEGATIVE (NEGATIVE); URINE PROTEIN TRACE (NEGATIVE); URINE RBC 110 /uL (0-23.9); URINE UROBILINOGEN 0.2 mg/dL (0.2-1.0)
[2023-08-13] MEDS ORDERED: MELATONIN 5 MG TABLETS PO PRN (18:42)
[2023-08-13] MEDS ORDERED: ALBUTEROL SO4 2.5/IPRATROPIUM 0.5 INH SOL 3 ML VIAL.NEB. NEB PRN (18:48)
[2023-08-13] MEDS ORDERED: ASPIRIN 81 MG CHEWABLE TABLETS ONE (18:51)
[2023-08-13] MEDS ORDERED: PANTOPRAZOLE 40 MG TABLET PO ONE (18:51)
[2023-08-13 18:53] LABS: POTASSIUM 4.3 mmol/L (3.5-5.1)
[2023-08-13] MEDS: ASPIRIN COATED 81 MG TABLET.EC PO SCH (18:54)
[2023-08-13] MEDS: PANTOPRAZOLE 40 MG TABLET PO SCH (18:54)
[2023-08-13 18:55] LABS: BLOOD UREA NITROGEN 23.1 mg/dL (7-18); CALCIUM 9.7 mg/dL (8.5-10.1)
[2023-08-13 18:58] LABS: CREATININE 1.3 mg/dL (0.55-1.3)
[2023-08-13 19:56] LABS: URINE WBC 61.2 /uL (0-25.8)
[2023-08-13] MEDS: D5-1/2NS+10 MEQ KCL - 10 MEQ/1,000 ML INFUS.BAG IV SCH (20:00)
[2023-08-13] MEDS ORDERED: ALBUTEROL SO4 2.5/IPRATROPIUM 0.5 INH SOL 3 ML VIAL.NEB. NEB SCH (20:00)
[2023-08-13 21:17] VITALS: BMI 21.8
[2023-08-13] MEDS: MELATONIN 5 MG TABLETS PO SCH (21:52)
[2023-08-13] MEDS: HEPARIN NA (PORCINE) 5,000 UNITS/ML 1ML VIAL SQ SCH (21:53)
[2023-08-13] MEDS: POLYETHYLENE GLYCOL (HEALTHYLAX) 3350 17 GM PACKET PO SCH (21:53)
[2023-08-13] MEDS: QUEtiapine FUMARATE 50 MG TABLET PO SCH (21:53)
[2023-08-13] MEDS: DOCUSATE SODIUM 100 MG CAPSULE (FP) PO SCH (21:53)
[2023-08-13] MEDS: ATORVASTATIN CA 20 MG TABLET (FP) PO SCH (21:53)
[2023-08-13] MEDS: AMOX TR/POT CLAV 875MG/125MG TABLETS (FP) PO SCH (21:54)
[2023-08-13] MEDS: LITHIUM CARBONATE 150 MG CAPSULE PO SCH (22:13)
[2023-08-13] MEDS: DIVALPROEX NA *ER* EXTEND REL 500 MG TABLET.SA (FP) PO SCH (22:13)
[2023-08-14] MEDS: LEVOTHYROXINE NA 50 MCG TABLET (FP) PO SCH (06:17)
[2023-08-14 07:13] LABS: HEMATOCRIT 32.6 % (32.4-45.2); HEMOGLOBIN 10.7 GM/dL (10.7-15.3); MCH 27.5 pg (25.7-33.7); MCHC 32.7 g/dl (32.0-36.0); MEAN CELL VOLUME 84.1 fl (80-96); MEAN PLT VOLUME 8.2 fl (7.5-11.1); PLATELET COUNT 317 10^3/uL (134-434); RBC 3.88 M/mm3 (3.60-5.2); RDW 15.3 % (11.6-15.6)
[2023-08-14 07:39] LABS: POTASSIUM 5.9 mmol/L (3.5-5.1)
[2023-08-14 07:41] LABS: BLOOD UREA NITROGEN 26.2 mg/dL (7-18); CALCIUM 9.7 mg/dL (8.5-10.1)
[2023-08-14 07:45] LABS: CREATININE 1.2 mg/dL (0.55-1.3)
[2023-08-14 08:49] LABS: ANISOCYTOSIS 0; HELMET CELLS 0; HOWELL-JOLLY BODIES 0; MACROCYTOSIS 0; OVALOCYTE 0; ROULEAU 0; SICKELED CELLS 0; TARGET CELLS 0; TEAR DROP CELLS 0; TOXIC GRANULATION 0
[2023-08-14] MEDS: metoPROLOL SUCCINATE 25 MG TAB.SR.24H (FP) PO SCH (09:39)
[2023-08-14] MEDS: MEMANTINE HCL 5 MG TABLET (UD) PO SCH (09:39)
[2023-08-14] MEDS: ESCITALOPRAM OXALATE 20 MG TABLET PO SCH (09:39)
[2023-08-14] MEDS: DONEPEZIL HCL 5 MG TABLET (FP) PO SCH (09:39)
[2023-08-14] MEDS: ACETAMINOPHEN 325 MG TABLET (FP) PO PRN (09:40)
[2023-08-14 10:24] LABS: ALBUMIN 2.9 g/dl (3.4-5.0)
[2023-08-14 10:29] LABS: BILIRUBIN,TOTAL 0.4 mg/dL (0.2-1); TOT PROT 7.2 g/dl (6.4-8.2)
[2023-08-14] MEDS: DEXTROSE 5%-0.45% SALINE 1,000 ML IV SCH (11:43)
[2023-08-14] MEDS: BUDESONIDE/FORMETEROL FUMARATE 80/4.5 mcg INHALER IH SCH (14:25)
[2023-08-15 10:17] LABS: BASO % 0.8 % (0-2.0); EOS % 3.4 % (0-4.5); HEMOGLOBIN 11.4 GM/dL (10.7-15.3); LYMPH % 32.6 % (8-40); MCH 27.4 pg (25.7-33.7); MCHC 32.7 g/dl (32.0-36.0); MEAN CELL VOLUME 83.8 fl (80-96); MONO % 4.3 % (3.8-10.2); NEUT % 58.9 % (42.8-82.8); PLATELET COUNT 384 10^3/uL (134-434); RBC 4.17 M/mm3 (3.60-5.2); RDW 15.8 % (11.6-15.6); WHITE BLOOD COUNT 12.6 K/mm3 (4.0-10.0)
[2023-08-15 10:32] LABS: BLOOD UREA NITROGEN 19.2 mg/dL (7-18); CALCIUM 9.6 mg/dL (8.5-10.1); POTASSIUM 4.1 mmol/L (3.5-5.1)
[2023-08-15 10:36] LABS: CREATININE 1.3 mg/dL (0.55-1.3)
[2023-08-16 08:01] LABS: BASO % 0.8 % (0-2.0); EOS % 4.1 % (0-4.5); HEMATOCRIT 34.9 % (32.4-45.2); HEMOGLOBIN 11.5 GM/dL (10.7-15.3); MCH 27.7 pg (25.7-33.7); MONO % 6.6 % (3.8-10.2); NEUT % 52.5 % (42.8-82.8); PLATELET COUNT 397 10^3/uL (134-434); RBC 4.16 M/mm3 (3.60-5.2); RDW 15.1 % (11.6-15.6); WHITE BLOOD COUNT 11.4 K/mm3 (4.0-10.0)
[2023-08-16 08:07] LABS: POTASSIUM 4.8 mmol/L (3.5-5.1)
[2023-08-16 08:08] LABS: CALCIUM 9.8 mg/dL (8.5-10.1)
[2023-08-16 08:10] LABS: BLOOD UREA NITROGEN 17.3 mg/dL (7-18)
[2023-08-16 08:12] LABS: CREATININE 1.4 mg/dL (0.55-1.3)
[2023-08-16 09:46] LABS: ANISOCYTOSIS 0; MACROCYTOSIS 0
[2023-08-17 14:06] VITALS: BP 124/78; PULSE 57; RESP 17; TEMP 97.5
== END 2023-08-17 16:30 | DRG 203 ==
LOC: JER 15:38 → JERBED 18:13 → OBSVTOIN 19:00 → J4W 21:10
PROVIDERS: ADMIT Internal Medicine; ATTEND Internal Medicine
DX: J45.901 Unspecified asthma with (acute) exacerbation (principal); I48.0 Paroxysmal atrial fibrillation; I10 Essential (primary) hypertension; F31.9 Bipolar disorder, unspecified; E03.9 Hypothyroidism, unspecified
CPT/HCPCS: 0241U-QW; 36415; 71045-TC-FY; 80048; 80053; 81003; 82550; 82553; 82728; 82803; 82962; 83540; 83550; 83605; 83735; 83880; 84484; 85025; 85610; 85730; 87040; 87086; 87186; 93005; 93010; 97116-GP; 99285-25; G0378; J0131; J1644

== ENCOUNTER 2023-09-04 11:32 | Emergency (ER) | payer OTHER, BC ==
[2023-09-04 12:13] VITALS: BMI 20.8
[2023-09-04] MEDS ORDERED: ONDANSETRON *ODT* 4 MG TABLET ONE (14:44)
[2023-09-04] MEDS: ONDANSETRON *ODT* 4 MG TABLET SL ONE (14:51)
[2023-09-04 20:16] VITALS: BP 135/68; PULSE 69; RESP 20; TEMP 98.2
== END 2023-09-04 20:22 ==
LOC: JER 11:32
DX: Z04.3 Encounter for examination and observation following other accident (principal); W05.0XXA Fall from non-moving wheelchair, initial encounter; Y92.002 Bathroom of unspecified non-institutional (private) residence as the place of occurrence of the external cause
CPT/HCPCS: 70450-TC; 72125-TC; 99284-25; Q0162